=== PATIENT | male | born 1985 | race Caucasian/White ===

== ENCOUNTER 2017-08-30 14:10 | Emergency (ER) | payer OTHER ==
[~2017-08-30] VITALS: Ht 182.9 cm; Wt 152.2 kg
[2017-08-30 14:15] VITALS: BP 146/95
[2017-08-30 14:54] LABS: RAPID INFLUENZA A Negative (Negative); RAPID INFLUENZA B Negative (Negative)
== END 2017-08-30 15:20 | disposition home or self-care (01) ==
LOC: ED 15:14
DX: B34.9 Viral infection, unspecified (principal)
CPT/HCPCS: 87400; 99284